=== PATIENT | female | born 1935 | race Caucasian/White ===

== ENCOUNTER 2020-06-02 12:27 | Outpatient (REF) | payer MEDICARE, BC, SELFPAY ==
[2020-06-02 13:55] LABS: Estimated Average Glucose 134 mg/dL; Hemoglobin A1c % 6.3 %
[2020-06-02 14:08] LABS: Anion Gap 14 (12-20); Blood Urea Nitrogen 18 mg/dL (9-16); Calcium 9.6 mg/dL (8.4-10.2); Carbon Dioxide 27 mmol/L (22-29); Chloride 104 mmol/L (96-108); Cholesterol 172 mg/dL; Estimated Glomerular Filt Rate > 60; Glucose Fasting 120 mg/dL (60-99); HDL Cholesterol 44 mg/dL; LDL Cholesterol Calculated 91 mg/dl; Sodium 141 mmol/L (135-145); Triglycerides 185 mg/dL
[2020-06-02 14:33] LABS: Free T4 (Free Thyroxine) 0.99 ng/dL (0.71-1.85); Thyroid Stimulating Hormone 4.07 uIU/mL (0.32-4.0)
== END 2020-06-02 12:28 | disposition home or self-care (01) ==
LOC: HO.10HDL 12:27
PROVIDERS: Visit Provider Internal Medicine
DX: E78.00 Pure hypercholesterolemia, unspecified (principal); R94.6 Abnormal results of thyroid function studies; R73.03 Prediabetes
CPT/HCPCS: 36415; 80048; 80061; 83036; 84439; 84443

== ENCOUNTER 2020-08-16 15:31 | Outpatient (REF) | payer MEDICARE, BC, SELFPAY ==
--- NOTE | ~2020-08-16 | XR_ITS ---
EXAMINATION: XR SHOULDER, RIGHT CLINICAL INFORMATION: Pain and bruising COMPARISON: Previous x-ray January 2019 TECHNIQUE: AP external rotation, Grashey, scapular Y, and axillary views of the right shoulder. FINDINGS: Bone alignment is normal. No fracture or dislocation is seen. There is arthritis at the glenohumeral and acromioclavicular joints. There are undersurface acromial osteophytes. There are surgical clips in the right axilla. There is right apical pleural thickening that appears unchanged. XR/XR shoulder RT min 2V IMPRESSION: Arthritis.
== END 2020-08-16 15:32 | disposition home or self-care (01) ==
LOC: HO.XRAY 15:31
PROVIDERS: PCP Internal Medicine; Visit Provider Internal Medicine
DX: M75.51 Bursitis of right shoulder (principal)
CPT/HCPCS: 73030

== ENCOUNTER 2020-08-26 11:36 | Outpatient (REF) | payer MEDICARE, BC, SELFPAY ==
[2020-08-26 14:14] LABS: MANUAL DIFF FLAG NO
[2020-08-26 14:24] LABS: Basophils Percent Auto 0.5 % (0-2); Eosinophils Absolute Auto 0.2 X10*3/uL (0.0-0.4); Hematocrit 42.4 % (37-47); Hemoglobin 13.9 g/dl (12.0-16.0); Imm Gran Abs Auto 0.01 X10*3/uL (0.00-0.03); Imm Gran Pct Auto 0.1 % (0.0-0.4); Lymphocytes Absolute Auto 1.5 X10*3/uL (1.2-4.9); Lymphocytes Percent Auto 19.1 % (20-40); Mean Corpuscular HGB Conc 32.8 g/dl (31.0-35.0); Mean Corpuscular Hemoglobin 29.5 pg (27.0-33.0); Mean Platelet Volume 12.2 fL (9.4-12.3); Monocytes Absolute Auto 0.8 X10*3/uL (0.1-1.2); Monocytes Percent Auto 9.9 % (2-11); Neutrophils Absolute Auto 5.3 X10*3/uL (2.0-8.3); Neutrophils Percent Auto 67.4 % (45-73); Platelet Count 233 X10*3/uL (160-400); Red Blood Count 4.71 X10*6/uL (4.20-5.50); Red Cell Distribution Width 13.2 % (11.0-16.0); White Blood Count 7.9 X10*3/uL (4.8-10.8)
[2020-08-26 14:30] LABS: INTERNATIONAL NORM RATIO 1.2 (0.9-1.1); Prothrombin Time 13.8 SEC (10.8-13.0)
[2020-08-26 14:33] LABS: Partial Thromboplastin Time 35.7 SEC (24.1-38.0)
[2020-08-26 14:41] LABS: B Type Natriuretic Peptide 71 pg/mL (<100)
== END 2020-08-26 11:37 | disposition home or self-care (01) ==
LOC: HO.10HDL 11:36
PROVIDERS: Visit Provider Internal Medicine
DX: I48.0 Paroxysmal atrial fibrillation (principal); I10 Essential (primary) hypertension; D64.9 Anemia, unspecified; R06.00 Dyspnea, unspecified
CPT/HCPCS: 36415; 83880; 85025; 85610; 85730

== ENCOUNTER 2020-10-05 13:14 | Outpatient (REF) | payer MEDICARE, BC, SELFPAY ==
[2020-10-05 13:49] LABS: MANUAL DIFF FLAG NO
[2020-10-05 14:13] LABS: Basophils Percent Auto 0.4 % (0-2); Eosinophils Absolute Auto 0.3 X10*3/uL (0.0-0.4); Eosinophils Percent Auto 3.5 % (0-4); Hematocrit 42.9 % (37-47); Hemoglobin 14.4 g/dl (12.0-16.0); Imm Gran Abs Auto 0.03 X10*3/uL (0.00-0.03); Imm Gran Pct Auto 0.3 % (0.0-0.4); Lymphocytes Absolute Auto 1.8 X10*3/uL (1.2-4.9); Lymphocytes Percent Auto 20.2 % (20-40); Mean Corpuscular HGB Conc 33.6 g/dl (31.0-35.0); Mean Corpuscular Hemoglobin 29.3 pg (27.0-33.0); Mean Corpuscular Volume 87.4 fL (80-98); Neutrophils Absolute Auto 5.9 X10*3/uL (2.0-8.3); Neutrophils Percent Auto 64.6 % (45-73); Platelet Count 236 X10*3/uL (160-400); Red Blood Count 4.91 X10*6/uL (4.20-5.50); Red Cell Distribution Width 13.2 % (11.0-16.0); White Blood Count 9.1 X10*3/uL (4.8-10.8)
[2020-10-05 15:12] LABS: Alanine Aminotransferase 29 U/L (0-31); Albumin Level 4.3 g/dL (3.5-5.0); Alkaline Phosphatase 90 U/L (39-117); Anion Gap 13 (12-20); Aspartate Amino Transferase 27 U/L (5-31); Bilirubin Total 1.1 mg/dL (0.0-1.0); Blood Urea Nitrogen 23 mg/dL (9-16); Carbon Dioxide 26 mmol/L (22-29); Chloride 108 mmol/L (96-108); Estimated Glomerular Filt Rate 59; Glucose Random 117 mg/dL (60-115); Potassium 4.4 mmol/L (3.3-5.1); Sodium 143 mmol/L (135-145); Total Protein 7.2 g/dL (6.5-8.0)
== END 2020-10-05 13:15 | disposition home or self-care (01) ==
LOC: HO.LAB 13:14
PROVIDERS: PCP Internal Medicine; Visit Provider Internal Medicine
DX: I48.0 Paroxysmal atrial fibrillation (principal); I10 Essential (primary) hypertension; J45.909 Unspecified asthma, uncomplicated
CPT/HCPCS: 36415; 80053; 85025

== ENCOUNTER → 2020-12-22 14:57 | Outpatient (BNVA) | payer MEDICARE, BC, SELFPAY | PROVIDERS: PCP Internal Medicine; Referring Provider Internal Medicine; Visit Provider Internal Medicine | DX: I48.0 Paroxysmal atrial fibrillation (principal); I10 Essential (primary) hypertension; I49.1 Atrial premature depolarization | CPT/HCPCS: 99202 ==

== ENCOUNTER → 2020-12-30 14:00 | Outpatient (REF) | payer MEDICARE, BC, SELFPAY ==
--- NOTE | 2020-12-30 14:05 | HM_ITS ---
Patient was monitored for 3 days and 23 hours. Baseline was normal sinus rhythm with average heart rate of 80 beats per minute. Minimum heart rate 33 beats per minute in sinus bradycardia during sleep hours. There were no episodes of atrial fibrillation noted. There were multiple short bursts of SVTs consistent with SVT, longest 20 beats at 179 beats per minute Bed total 24,000 inter 96 PACs consistent with 5.45% total burden consistent with frequent PACs. Patient did not report any symptoms MTDD
== END ==
LOC: HO.CARD 14:00
PROVIDERS: Visit Provider Internal Medicine
DX: R00.2 Palpitations (principal); I48.0 Paroxysmal atrial fibrillation
CPT/HCPCS: 93242

== ENCOUNTER → 2021-02-10 15:01 | Outpatient (BNVA) | payer MEDICARE, BC, SELFPAY | PROVIDERS: PCP Internal Medicine; Referring Provider Internal Medicine; Visit Provider Internal Medicine | DX: I48.0 Paroxysmal atrial fibrillation (principal); I49.1 Atrial premature depolarization; I10 Essential (primary) hypertension | CPT/HCPCS: 99212 ==

== ENCOUNTER 2021-06-07 10:01 | Outpatient (REF) | payer MEDICARE, BC, SELFPAY ==
[2021-06-07 10:35] LABS: MANUAL DIFF FLAG NO
[2021-06-07 10:39] LABS: Basophils Percent Auto 0.4 % (0-2); Eosinophils Absolute Auto 0.2 X10*3/uL (0.0-0.4); Eosinophils Percent Auto 2.8 % (0-4); Hematocrit 44.2 % (37.0-47.0); Hemoglobin 14.9 g/dl (12.0-16.0); Imm Gran Abs Auto 0.03 X10*3/uL (0.00-0.03); Imm Gran Pct Auto 0.4 % (0.0-0.4); Lymphocytes Absolute Auto 1.6 X10*3/uL (1.2-4.9); Lymphocytes Percent Auto 19.9 % (20-40); Mean Corpuscular HGB Conc 33.7 g/dl (31.0-35.0); Mean Corpuscular Hemoglobin 29.9 pg (27.0-33.0); Mean Corpuscular Volume 88.8 fL (80.0-98.0); Monocytes Absolute Auto 0.7 X10*3/uL (0.1-1.2); Monocytes Percent Auto 8.5 % (2-11); Neutrophils Absolute Auto 5.4 x10*3/uL (2.0-8.3); Platelet Count 221 X10*3/uL (160-400); Red Blood Count 4.98 X10*6/uL (4.20-5.50); Red Cell Distribution Width 12.8 % (11.0-16.0); White Blood Count 7.9 X10*3/uL (4.8-10.8)
[2021-06-07 11:05] LABS: Alanine Aminotransferase 26 U/L (0-31); Albumin Level 4.4 g/dL (3.5-5.0); Alkaline Phosphatase 75 U/L (39-117); Anion Gap 13 (12-20); Aspartate Amino Transferase 24 U/L (5-31); Bilirubin Total 1.7 mg/dL (0.0-1.0); Blood Urea Nitrogen 21 mg/dL (9-16); Calcium 10.1 mg/dL (8.4-10.2); Carbon Dioxide 27 mmol/L (22-29); Chloride 105 mmol/L (96-108); Cholesterol 162 mg/dL; Estimated Glomerular Filt Rate > 60; Glucose Fasting 140 mg/dL (60-99); HDL Cholesterol 48 mg/dL; LDL Cholesterol Calculated 77 mg/dl; Potassium 3.7 mmol/L (3.3-5.1); Sodium 141 mmol/L (135-145); Total Protein 7.4 g/dL (6.5-8.0); Triglycerides 185 mg/dL
[2021-06-07 11:25] LABS: Thyroid Stimulating Hormone 5.06 uIU/mL (0.32-4.0)
== END 2021-06-07 10:02 | disposition home or self-care (01) ==
LOC: HO.10HDL 10:01
PROVIDERS: Visit Provider Internal Medicine
DX: I48.91 Unspecified atrial fibrillation (principal); I10 Essential (primary) hypertension; R60.9 Edema, unspecified; E78.00 Pure hypercholesterolemia, unspecified
CPT/HCPCS: 36415; 80053; 80061; 84443; 85025

== ENCOUNTER → 2021-06-16 14:08 | Outpatient (BNVA) | payer MEDICARE, BC, SELFPAY | PROVIDERS: PCP Internal Medicine; Referring Provider Internal Medicine; Visit Provider Internal Medicine | DX: I48.0 Paroxysmal atrial fibrillation (principal); I49.1 Atrial premature depolarization; I10 Essential (primary) hypertension; Z79.01 Long term (current) use of anticoagulants; Z79.899 Other long term (current) drug therapy | CPT/HCPCS: 93005; 99212 ==

== ENCOUNTER 2021-07-15 15:10 | Outpatient (REF) | payer MEDICARE, BC, SELFPAY ==
--- NOTE | ~2021-07-15 | XR_ITS ---
EXAMINATION: XR KNEE, LEFT CLINICAL INFORMATION: Status post fall left knee. COMPARISON: None TECHNIQUE: Four views of the left knee. FINDINGS: There is mild loss of medial and patellofemoral compartment joint space with tricompartment periapical spurring and mild suprapatellar joint effusion. No visible acute fracture or dislocation seen. No loose body seen. XR/XR knee LT 4V IMPRESSION: Mild degenerative changes in tricompartment left knee with mild suprapatellar joint effusion. No acute fracture or loose bodies.
== END 2021-07-15 15:11 | disposition home or self-care (01) ==
LOC: HO.XRAY 15:10
PROVIDERS: PCP Internal Medicine; Visit Provider Internal Medicine
DX: M25.562 Pain in left knee (principal); Z91.81 History of falling
CPT/HCPCS: 73564

== ENCOUNTER 2021-09-15 14:11 | Outpatient (REF) | payer MEDICARE, BC, SELFPAY ==
[2021-09-15 16:17] LABS: Anion Gap 13 (12-20); Blood Urea Nitrogen 22 mg/dL (9-16); Calcium 10.1 mg/dL (8.4-10.2); Carbon Dioxide 24 mmol/L (22-29); Chloride 108 mmol/L (96-108); Estimated Glomerular Filt Rate > 60; Glucose Random 104 mg/dL (60-115); Potassium 4.1 mmol/L (3.3-5.1); Sodium 141 mmol/L (135-145)
== END 2021-09-15 14:12 | disposition home or self-care (01) ==
LOC: HO.LAB 14:11
PROVIDERS: PCP Internal Medicine; Referring Provider Internal Medicine; Visit Provider Internal Medicine
DX: I48.0 Paroxysmal atrial fibrillation (principal); I49.1 Atrial premature depolarization; I10 Essential (primary) hypertension
CPT/HCPCS: 36415; 80048; 99212

== ENCOUNTER 2021-10-07 07:28 | Outpatient (REF) | payer MEDICARE, BC, SELFPAY ==
--- NOTE | ~2021-10-07 | XR_ITS ---
EXAMINATION: XR KNEE, LEFT XR KNEE STANDING, BILATERAL CLINICAL INFORMATION: Bilateral AP knee standing and left knee 2 views. COMPARISON: None TECHNIQUE: AP bilateral standing view of the knees was obtained. Left knee 2 views. FINDINGS: Bilateral AP knee: There is severe loss of medial and moderate loss of lateral compartment joint space with bilateral periarticular spurring. No fracture, dislocation or bony erosive changes seen. There is no soft tissue calcification. Left knee: There is loss of peripheral compartment joint space with lateral patellar spurring. No abnormal joint effusion seen. No soft tissue swelling. XR/XR knee standing BI IMPRESSION: Degenerative arthritic changes tricompartment left knee without any joint effusion or loose bodies. No acute fracture seen. Mild degenerative changes medial and lateral compartment right knee.
--- NOTE | ~2021-10-07 | XR_ITS ---
EXAMINATION: XR KNEE, LEFT XR KNEE STANDING, BILATERAL CLINICAL INFORMATION: Bilateral AP knee standing and left knee 2 views. COMPARISON: None TECHNIQUE: AP bilateral standing view of the knees was obtained. Left knee 2 views. FINDINGS: Bilateral AP knee: There is severe loss of medial and moderate loss of lateral compartment joint space with bilateral periarticular spurring. No fracture, dislocation or bony erosive changes seen. There is no soft tissue calcification. Left knee: There is loss of peripheral compartment joint space with lateral patellar spurring. No abnormal joint effusion seen. No soft tissue swelling. XR/XR knee LT 1V IMPRESSION: Degenerative arthritic changes tricompartment left knee without any joint effusion or loose bodies. No acute fracture seen. Mild degenerative changes medial and lateral compartment right knee.
== END 2021-10-07 07:29 | disposition home or self-care (01) ==
LOC: HO.HOSX 07:28
PROVIDERS: Visit Provider Physician Assistant
DX: M25.561 Pain in right knee (principal); M25.562 Pain in left knee; M17.12 Unilateral primary osteoarthritis, left knee; I48.91 Unspecified atrial fibrillation; I10 Essential (primary) hypertension; R73.03 Prediabetes; R94.6 Abnormal results of thyroid function studies
CPT/HCPCS: 36415; 73560; 73565; 80053; 83036; 84439; 84443; 85025; 99202

== ENCOUNTER → 2021-11-15 14:36 | Outpatient (REF) | payer MEDICARE, BC, SELFPAY ==
--- NOTE | 2021-11-15 14:39 | CA_ITS ---
Transthoracic Echocardiogram Patient (Last, First, Middle): Josefina Bird T Gender: Female Date of : 1935 Age: 86 Procedure Date: 11/15/2021 Procedure Type: Transthoracic Echocardiogram Location: OP Height: 154.94 cm Weight: 63.5 kg BSA: 1.62 m2 Heart Rate: bpm BP: 138 / 79 mmHg [employer]: MOMO Referring MD: Umer Bowie MD Symptoms: I48.0 - Paroxysmal atrial fibrillation Study Quality: Technically Difficult/contrast ECG Rhythm: Sinus Conclusions: - The left ventricular systolic function is normal. The visually estimated ejection fraction is between 65-70%. - There is mild calcification of the aortic valve. - No obvious valvular pathology seen on this study. Findings Procedure Information Contrast agent, definity, is being given per protocol without apparent complications. Left Ventricle Normal left ventricular cavity size. There is mildly increased left ventricular wall thickness. The left ventricular systolic function is normal. The visually estimated ejection fraction is between 65-70%. E/E prime ratio is between 8 and 15 consistent with indeterminate filling pressures. Evidence suggests grade I (mild) diastolic dysfunction. Right Ventricle The right ventricle was not well visualized. Normal right ventricular cavity size. Atria The left atrium is moderately dilated. The right atrium is normal in size. Aortic Valve There is mild calcification of the aortic valve. There is no aortic valve stenosis. There is no aortic valve regurgitation. Mitral Valve There is mild mitral annular calcification. There is no mitral valve regurgitation. There is no mitral valve stenosis. Pulmonic Valve The pulmonic valve is likely normal. Tricuspid Valve There is trace tricuspid valve regurgitation. The pulmonary artery systolic pressure is normal. Great Vessels The aortic annulus, sinuses of valsalva, and asc aorta are normal in size. Venous The inferior vena cava is normal in size and collapses greater than 50% with inspiration. Pericardium/Pleural There is no evidence of pericardial effusion. Prior Study Comparison No prior study available for comparison. Recommendations, Care & Conclusions No obvious valvular pathology seen on this study. Measurements 2D Linear Measurements IVSd: 1.15 0.6-0.9/0.6-1.0 cm LVIDd: 4.57 3.9-5.3/4.2-5.9 cm LVIDd Index: 2.82 2.4-3.2/2.2-3.1 cm/m2 LVIDs: 2.98 2.0-3.6 cm LVPWd: 1.11 0.7-1.1 cm LA Diam: 3.90 2.7-3.8/3.0-4.0 cm LAIDs Index: 2.41 1.5-2.3 cm/m2 LV Mass: 232.09 67-162/88-224 g LV Mass Index: 143.27 43-95/49-115 g/m2 LVOT Diam: 2.00 3.0+(-)1.3 cm 2D Systolic Function EF 4C: 64.40 >55% EF 2C: 67.10 >55% EF BiP: 64.90 >55% Mitral Valve MV Pk E: 0.83 MV PK A: 1.27 MV Decel Time: 246.00 E/A: 0.60 E'Lateral: 6.74 E'Medial: 4.68 E/E' Med: 17.60 E/E' Lat: 12.20 PHT: 72.00 MVA PHT: 3.06 Decel [place]: 3.36 Aortic Valve AoV Pk Yoseph: 1.66 AoV Mn Yoseph: 1.05 AoV VTI: 0.30 AoV Pk Grad: 11.00 Aov Mn Grad: 5.00 TANA Cont.VTI: 3.12 LVOT LVOT Pk Yoseph: 1.49 LVOT Mn Yoseph: 0.83 LVOT VTI: 0.29 LVOT Pk Grad: 9.00 LVOT Mn Grad: 3.00 LVOT Diam: 2.00 LVOT Area: 3.14 Diastolic Function MV Pk E: 0.83 MV Pk A: 1.27 E/A: 0.60 E'Medial: 4.68 E/E' Med: 17.60 E' Laterial: 6.74 E/E' Lat: 12.20 Right Ventricle TVS' Yoseph: 7.40 Tricuspid Valve TR Pk Yoseph: 1.86 TR Pk Grad: 14.00 RA Press: 3.00 RVSP: 17.00 Great Vessels Aorta Sinus of Valsalva: 3.09 2.0-3.[address] [place]: 2.80 1.7-3.4 cm Ao Asc: 3.60 2.1-3.4 cm Updated in Other Vendor System with Status of Final Umer Bowie MD electronically signed on 11/16/2021 11:03:11 AM with status of Final
--- NOTE | 2021-11-15 14:39 | HM_ITS ---
Conclusion: 1. Patient was monitored for total period of 3 days 2. Baseline numbers normal sinus rhythm with average heart of 70 beats per minute in sinus rhythm 3. Frequent intermittent episodes of atrial fibrillation with longest episode lasting 3 hours and 47 minutes, heart rate up to 182 beats per minute in atrial fibrillation. Total burden of 18.7% 4. Frequent short episodes of supraventricular tachycardia longest lasting 40 beats could represent short burst of atrial fibrillation 5. Total of 74,000 368 PACs accounting for 21.8% of total beats account for frequent PACs 6. No patient reported events MTDD
== END ==
LOC: HO.CARD 14:36
PROVIDERS: PCP Internal Medicine; Visit Provider Internal Medicine
DX: I48.0 Paroxysmal atrial fibrillation (principal)
CPT/HCPCS: 93242; 93306; Q9957

== ENCOUNTER → 2021-12-01 14:28 | Outpatient (BNVA) | payer MEDICARE, BC, SELFPAY | PROVIDERS: PCP Internal Medicine; Visit Provider Orthopaedic Surgery | DX: M17.12 Unilateral primary osteoarthritis, left knee (principal) | CPT/HCPCS: 99212 ==

== ENCOUNTER 2022-08-03 15:35 | Outpatient (REF) | payer MEDICARE, BC, SELFPAY ==
[2022-08-03 18:19] LABS: Alanine Aminotransferase 25 U/L (0-31); Albumin Level 4.2 g/dL (3.5-5.0); Alkaline Phosphatase 65 U/L (39-117); Anion Gap 13 (12-20); Aspartate Amino Transferase 26 U/L (5-31); Blood Urea Nitrogen 24 mg/dL (9-16); Calcium 9.6 mg/dL (8.4-10.2); Carbon Dioxide 24 mmol/L (22-29); Chloride 106 mmol/L (96-108); Cholesterol 215 mg/dL; Estimated Glomerular Filt Rate > 60; Glucose Random 92 mg/dL (60-115); Potassium 4.3 mmol/L (3.3-5.1); Sodium 139 mmol/L (135-145)
[2022-08-03 18:36] LABS: Free T4 (Free Thyroxine) 0.99 ng/dL (0.71-1.85); Thyroid Stimulating Hormone 3.35 uIU/mL (0.32-4.0)
== END 2022-08-03 15:36 | disposition home or self-care (01) ==
LOC: HO.LAB 15:35
PROVIDERS: PCP Internal Medicine; Visit Provider Internal Medicine
DX: J45.909 Unspecified asthma, uncomplicated (principal); E03.9 Hypothyroidism, unspecified; I10 Essential (primary) hypertension; I48.91 Unspecified atrial fibrillation
CPT/HCPCS: 36415; 80053; 82465; 84439; 84443

== ENCOUNTER 2022-10-19 16:06 | Outpatient (REF) | payer MEDICARE, BC, SELFPAY ==
--- NOTE | ~2022-10-19 | XR_ITS ---
EXAMINATION: XR BILATERAL KNEES CLINICAL INFORMATION: Reason for Exam s/p fall, pain COMPARISON: Knee radiographs 10/07/2021 TECHNIQUE: 4 views of the bilateral knees FINDINGS: RIGHT KNEE: No acute fracture or dislocation. Moderate degenerative changes of the knee with tricompartmental osteophytes and borderline loss of medial and lateral compartment joint space. Mineralization within the tibiofemoral joint space suggesting chondrocalcinosis. Small suprapatellar joint effusion. Soft tissues are unremarkable. LEFT KNEE: Subtle cortical irregularity along the proximal fibular metaphysis however only appreciated on one view, unclear if this could reflect a tiny nondisplaced fracture versus superimposition of osseous structures, recommend correlation with point tenderness. Moderate degenerative changes of the knee with tricompartmental osteophytes and borderline loss of medial compartment joint space. Mineralization the tibiofemoral joint space suggesting chondrocalcinosis. Small suprapatellar joint effusion. Atherosclerotic vascular calcification. Soft tissue swelling anterior to the knee. XR/XR knee LT 4V IMPRESSION: * Subtle cortical irregularity along the left proximal fibular metaphysis however only appreciated on one view, unclear if this could reflect a tiny nondisplaced fracture versus superimposition of osseous structures, recommend correlation with point tenderness. * Moderate degenerative changes of the knees with small suprapatellar effusions and findings suggestive of chondrocalcinosis.
--- NOTE | ~2022-10-19 | XR_ITS ---
EXAMINATION: XR BILATERAL KNEES CLINICAL INFORMATION: Reason for Exam s/p fall, pain COMPARISON: Knee radiographs 10/07/2021 TECHNIQUE: 4 views of the bilateral knees FINDINGS: RIGHT KNEE: No acute fracture or dislocation. Moderate degenerative changes of the knee with tricompartmental osteophytes and borderline loss of medial and lateral compartment joint space. Mineralization within the tibiofemoral joint space suggesting chondrocalcinosis. Small suprapatellar joint effusion. Soft tissues are unremarkable. LEFT KNEE: Subtle cortical irregularity along the proximal fibular metaphysis however only appreciated on one view, unclear if this could reflect a tiny nondisplaced fracture versus superimposition of osseous structures, recommend correlation with point tenderness. Moderate degenerative changes of the knee with tricompartmental osteophytes and borderline loss of medial compartment joint space. Mineralization the tibiofemoral joint space suggesting chondrocalcinosis. Small suprapatellar joint effusion. Atherosclerotic vascular calcification. Soft tissue swelling anterior to the knee. XR/XR knee RT 4V IMPRESSION: * Subtle cortical irregularity along the left proximal fibular metaphysis however only appreciated on one view, unclear if this could reflect a tiny nondisplaced fracture versus superimposition of osseous structures, recommend correlation with point tenderness. * Moderate degenerative changes of the knees with small suprapatellar effusions and findings suggestive of chondrocalcinosis.
== END 2022-10-19 16:07 | disposition home or self-care (01) ==
LOC: HO.XRAY 16:06
PROVIDERS: PCP Internal Medicine; Visit Provider Internal Medicine
DX: M25.562 Pain in left knee (principal); M17.11 Unilateral primary osteoarthritis, right knee
CPT/HCPCS: 73564

== ENCOUNTER 2023-02-20 14:47 | Outpatient (REF) | payer MEDICARE, BC, SELFPAY ==
[2023-02-22 05:23] LABS: Lyme Abs Screen <0.90 index
== END 2023-02-20 14:48 | disposition home or self-care (01) ==
LOC: HO.LAB 14:47
PROVIDERS: PCP Internal Medicine; Visit Provider Internal Medicine
DX: T14.8XXA Other injury of unspecified body region, initial encounter (principal); W57.XXXA Bitten or stung by nonvenomous insect and other nonvenomous arthropods, initial encounter; Y93.9 Activity, unspecified; Y92.9 Unspecified place or not applicable; Y99.9 Unspecified external cause status
CPT/HCPCS: 36415; 86617; 86618

== ENCOUNTER 2024-02-26 16:19 | Outpatient (REF) | payer MEDICARE, BC, SELFPAY ==
[2024-02-26 16:34] LABS: MANUAL DIFF FLAG NO
[2024-02-26 17:04] LABS: Basophils Percent Auto 0.4 % (0-2); Eosinophils Absolute Auto 0.2 X10*3/uL (0.0-0.4); Eosinophils Percent Auto 2.2 % (0-4); Hematocrit 40.8 % (37.0-47.0); Hemoglobin 14.2 g/dl (12.0-16.0); Imm Gran Abs Auto 0.04 X10*3/uL (0.00-0.03); Imm Gran Pct Auto 0.4 % (0.0-0.4); Lymphocytes Absolute Auto 1.6 X10*3/uL (1.2-4.9); Lymphocytes Percent Auto 17.1 % (20-40); Mean Corpuscular HGB Conc 34.8 g/dl (31.0-35.0); Mean Corpuscular Hemoglobin 29.8 pg (27.0-33.0); Mean Corpuscular Volume 85.5 fL (80.0-98.0); Mean Platelet Volume 11.6 fL (9.4-12.3); Monocytes Absolute Auto 0.9 X10*3/uL (0.1-1.2); Monocytes Percent Auto 9.7 % (2-11); Neutrophils Absolute Auto 6.5 x10*3/uL (2.0-8.3); Neutrophils Percent Auto 70.2 % (45-73); Platelet Count 252 X10*3/uL (160-400); Red Blood Count 4.77 X10*6/uL (4.20-5.50); Red Cell Distribution Width 13.4 % (11.0-16.0); White Blood Count 9.3 X10*3/uL (4.8-10.8)
[2024-02-26 17:35] LABS: Alanine Aminotransferase 29 U/L (0-31); Albumin Level 4.3 g/dL (3.5-5.0); Alkaline Phosphatase 72 U/L (39-117); Anion Gap 15 (12-20); Aspartate Amino Transferase 30 U/L (5-31); Bilirubin Total 0.9 mg/dL (0.0-1.0); Blood Urea Nitrogen 22 mg/dL (9-16); Calcium 9.9 mg/dL (8.4-10.2); Carbon Dioxide 22 mmol/L (22-29); Chloride 107 mmol/L (96-108); Estimated Glomerular Filt Rate > 60; Glucose Random 96 mg/dL (60-115); Potassium 3.9 mmol/L (3.3-5.1); Sodium 140 mmol/L (135-145); Total Protein 7.6 g/dL (6.5-8.0)
[2024-02-26 17:52] LABS: Free T4 (Free Thyroxine) 1.15 ng/dL (0.71-1.85); Thyroid Stimulating Hormone 2.98 uIU/mL (0.32-4.0)
== END 2024-02-26 16:20 | disposition home or self-care (01) ==
LOC: HO.LAB 16:19
PROVIDERS: PCP Internal Medicine; Visit Provider Internal Medicine
DX: I10 Essential (primary) hypertension (principal); J45.909 Unspecified asthma, uncomplicated; I48.91 Unspecified atrial fibrillation; E03.9 Hypothyroidism, unspecified
CPT/HCPCS: 36415; 80053; 84439; 84443; 85025